=== PATIENT | male | born 1950 | race Caucasian/White ===

== ENCOUNTER → 2023-10-31 15:58 | Outpatient (REF) | payer MEDICARE, OTHER, SELFPAY ==
[2023-10-31 17:11] LABS: ALT (SGPT) 18 U/L (0-50); AST (SGOT) 19 U/L (17-59); Albumin 4.5 g/dl (3.5-5.0); Alkaline Phosphatase 58 U/L (38-126); Blood Urea Nitrogen 13 mg/dl (9-20); Calcium 10.2 mg/dl (8.4-10.2); Carbon Dioxide 22 mmol/L (22-30); Chloride 104 mmol/L (98-107); Glucose 101 mg/dl (70-99); HDL Cholesterol 45 mg/dl; LDL Cholesterol, Calculated 32 mg/dl; Sodium 136 mmol/L (135-145); Total Bilirubin 1.2 mg/dl (0.2-1.3); Total Cholesterol 96 mg/dl (50-199); Total Protein 6.8 g/dl (6.3-8.2); Triglyceride 95 mg/dl (10-149); Very Low Density Lipoprotein 19 mg/dl (0-30); eGFR > 60.00
[2023-10-31 17:38] LABS: Microalbumin, Random Urine < 0.6 mg/dl (0.6-1.7)
[2023-10-31 17:39] LABS: TSH 1.22 uIU/ml (0.47-4.68)
[2023-11-01 10:34] LABS: Glycohemoglobin (HgbA1c) 9.1 % (4.0-5.6)
== END ==
LOC: REG 15:58
PROVIDERS: ATTENDING PHYSICIAN Internal Medicine
DX: Z79.899 Other long term (current) drug therapy (principal); E78.2 Mixed hyperlipidemia; E11.9 Type 2 diabetes mellitus without complications; R73.09 Other abnormal glucose; Z13.29 Encounter for screening for other suspected endocrine disorder
CPT/HCPCS: 36415; 80053; 80061; 82043; 82570; 83036; 84443